=== PATIENT | female | born 1975 | race Caucasian/White ===

== ENCOUNTER 2024-12-21 03:35 | Emergency (ER) | payer SELFPAY ==
[2024-12-21 03:52] VITALS: BP 132/93; PULSE 100; RESP 18; TEMP 99.3; BMI 39.0
[2024-12-21] MEDS: LACTATED RINGERS SOLUTION 1000 ML INFUS.BAG IV ONE (04:52)
== END 2024-12-21 06:08 | disposition home or self-care (01) ==
LOC: JER 03:35
DX: A08.4 Viral intestinal infection, unspecified (principal); R19.7 Diarrhea, unspecified; R10.9 Unspecified abdominal pain; E86.0 Dehydration
CPT/HCPCS: 99283-25